=== PATIENT | male | born 1935 | race Caucasian/White ===

== ENCOUNTER 2018-02-10 16:31 | Emergency (ER) | payer MEDICARE, OTHER ==
[~2018-02-10] VITALS: Ht 182.9 cm; Wt 97.0 kg
[~2018-02-10 16:31] MED LIST: AVODART0.5 MG OR; CRESTOR10 MG OR; ECOTRIN325 MG OR; FELODIPINE5 MG OR; FISH-EPA1000 MG OR; FLUOXETINE20 M2 OR; FOLBIC OR; HYTRIN1 MG OR; ISOSORB DIN30 MG OR; JANUVIA100 MG OR; KEFLEX500 MG OR; LANTUS100 UNIT/M SC; LISINOPRIL20 MG OR; METO50TA52 OR; METOPROLOL100 MG OR; NIACIN TR1000 MG OR; NITROGLYCER0.4 MG SL; NITROSTAT0.4 MG SL; NORTRIPTYLIN25 MG OR; NORTRIPTYLIN50 MG OR; OMEGA 31000 MG OR; OMEPRAZOLE20 MG OR; PERCOCET 10/31 COMBO PO; PERCOCET 5/325M1 TAB OR; PLAVIX75 MG OR; STOOL SOFTEN100 MG OR; TOPROL XL100 MG OR; TOPROL XL50 MG OR; VITAMIN C1000 MG OR
[2018-02-10 17:00] VITALS: BP 126/60
[2018-02-10 17:56] LABS: HEMATOCRIT 39.6 % (39.0-50.0); HEMOGLOBIN 13.7 g/dl (14.0-18.0); IMMATURE GRANULOCYTES 0.5 % (0.0-5.0); MEAN CORPUSCULAR HGB 32.9 pG CALC (26.0-32.0); MEAN CORPUSCULAR HGB CONC 34.6 g/L CALC (32.0-36.0); NEUT# 8.11 thou/uL (1.82-7.42); RED BLOOD COUNT 4.17 mill/uL (4.70-6.10); RED CELL DISTRI WIDTH 12.9 % (11.5-15.5)
[2018-02-10 18:07] LABS: URINE BILIRUBIN - DIPSTICK NEGATIVE (NEGATIVE); URINE BLOOD DIPSTICK LARGE (NEGATIVE); URINE COLOR YELLOW; URINE GLUCOSE - DIPSTICK NEGATIVE (NEGATIVE); URINE KETONE NEGATIVE (NEGATIVE); URINE NITRITE - DIPSTICK NEGATIVE (Negative); URINE PH 6.5 (4.5-8.0); URINE PROTEIN - DIPSTICK 100 mg/dL (NEG-TRACE); URINE SPECIFIC GRAVITY 1.025; URINE UROBILINOGEN - DIPSTICK 0.2 E.U./dL (0.2)
[2018-02-10 18:13] LABS: URINE CLARITY CLOUDY; URINE LEUK ESTERASE LARGE (NEGATIVE)
[2018-02-10 18:14] LABS: ALBUMIN 3.8 g/dL (3.2-5.0); ALKALINE PHOSPHATASE 42 u/l (38-126); ANION GAP 12 (6-22 (CALC)); BILIRUBIN, TOTAL 0.7 mg/dL (0.0-1.4); BUN 26 mg/dL (8-23); BUN/CREATININE RATIO 20 (12-20 (CALC)); CARBON DIOXIDE 29 mmol/l (22-30); CHLORIDE 103 mmol/l (95-108); CREATININE 1.3 mg/dL (0.7-1.3); GFR 53 ML/MIN (>=60 (CALC)); GFR FOR AFR.AMER. > 60 ML/MIN (>=60 (CALC)); POTASSIUM 4.3 mmol/l (3.5-5.1); SGOT/AST 22 u/l (19-48); SODIUM 140 mmol/l (137-146); TOTAL PROTEIN 6.4 g/dL (6.3-8.2)
[2018-02-10] MEDS ORDERED: VENLAFAXINE75 M2 PO (18:18)
[2018-02-10 18:20] LABS: URINE BACTERIA MANY hpf; URINE RBC 50-100 RBC/hpf (0-5); URINE WBC 50-100 WBC/hpf (0-5)
[2018-02-10] MEDS ORDERED: AMLODIPINE5 MG PO (18:20)
[2018-02-10] MEDS ORDERED: PRIMIDONE50 MG PO (18:20)
[2018-02-10] MEDS ORDERED: SYMBICORT1 AE1 IN (18:21)
[2018-02-10] MEDS ORDERED: LEVOTHYROXIN50 MCG PO (18:22)
[2018-02-10] MEDS ORDERED: TRAZODONE50 MG PO (18:22)
[2018-02-10] MEDS ORDERED: ROPINIROLE0.5 MG PO (18:24)
[2018-02-10] MEDS ORDERED: MULTI VIT PO (18:24)
[2018-02-10] MEDS ORDERED: VITAMIN C1000 MG PO (18:24)
[2018-02-10] MEDS ORDERED: PYRIDIUM200 MG PO (18:56)
[2018-02-10] MEDS ORDERED: CIPROFLOXACN500 MG PO (18:56)
== END 2018-02-10 19:15 | disposition home or self-care (01) ==
LOC: ED 16:31
PROVIDERS: Emergency Medicine
DX: N39.0 Urinary tract infection, site not specified (principal); K59.00 Constipation, unspecified; E11.9 Type 2 diabetes mellitus without complications; M19.90 Unspecified osteoarthritis, unspecified site; E78.00 Pure hypercholesterolemia, unspecified; B96.20 Unspecified Escherichia coli [E. coli] as the cause of diseases classified elsewhere; Z95.5 Presence of coronary angioplasty implant and graft; Z95.0 Presence of cardiac pacemaker; Z95.820 Peripheral vascular angioplasty status with implants and grafts

== ENCOUNTER → 2018-05-20 | Outpatient (REF) | payer MEDICARE, OTHER ==
[~2018-05-20] MED LIST changes: +AMLODIPINE5 MG PO; +CIPROFLOXACN500 MG PO; +LEVOTHYROXIN50 MCG PO; +MULTI VIT PO; +PRIMIDONE50 MG PO; +PYRIDIUM200 MG PO; +ROPINIROLE0.5 MG PO; +SYMBICORT1 AE1 IN; +TRAZODONE50 MG PO; +VENLAFAXINE75 M2 PO; +VITAMIN C1000 MG PO
[2018-05-20 08:48] LABS: ALBUMIN 4.2 g/dL (3.2-5.0); BILIRUBIN, TOTAL 0.5 mg/dL (0.0-1.4); CREATININE 1.4 mg/dL (0.7-1.3); POTASSIUM 4.4 mmol/l (3.5-5.1); TOTAL PROTEIN 6.4 g/dL (6.3-8.2)
== END | disposition home or self-care (01) ==
LOC: LAB 07:44
PROVIDERS: ATTEND Internal Medicine
DX: E11.42 Type 2 diabetes mellitus with diabetic polyneuropathy (principal)

== ENCOUNTER → 2018-05-26 | Outpatient (REF) | payer MEDICARE, OTHER | END | disposition home or self-care (01) | LOC: DI 15:22 | PROVIDERS: ATTEND Internal Medicine | DX: M25.561 Pain in right knee (principal); M25.562 Pain in left knee ==

== ENCOUNTER 2018-10-19 08:53 | Observation (INO) | payer MEDICARE, OTHER ==
[~2018-10-19] VITALS: Ht 182.9 cm; Wt 95.3 kg
--- NOTE | 2018-10-19 08:53 | NUR ---
PT TO ROOM VIA EMS STRETCHER.
--- NOTE | 2018-10-19 09:00 | NUR ---
PT REPORTS HE IS NOW HAVING 2/10 PRESSURE TO MIDSTERNAL AREA. MD NOTIFIED.
[2018-10-19 09:31] LABS: HEMATOCRIT 41.8 % (39.0-50.0); HEMOGLOBIN 14.3 g/dl (14.0-18.0); IMMATURE GRANULOCYTES 0.5 % (0.0-5.0); MEAN CELL VOLUME 93.5 fL CALC (80.0-100.0); MEAN CORPUSCULAR HGB CONC 34.2 g/L CALC (32.0-36.0); NEUT# 3.71 thou/uL (1.82-7.42); RED BLOOD COUNT 4.47 mill/uL (4.70-6.10); RED CELL DISTRI WIDTH 12.5 % (11.5-15.5)
[2018-10-19 09:41] LABS: PROTHROMBIN TIME 10.4 SECONDS (9.0-12.5)
[2018-10-19 09:52] LABS: ALBUMIN 4.2 g/dL (3.2-5.0); ALKALINE PHOSPHATASE 36 u/l (38-126); ANION GAP 12 (6-22 (CALC)); BILIRUBIN, TOTAL 0.6 mg/dL (0.0-1.4); BUN 25 mg/dL (8-23); BUN/CREATININE RATIO 20 (12-20 (CALC)); CARBON DIOXIDE 29 mmol/l (22-30); CHLORIDE 100 mmol/l (95-108); CREATININE 1.2 mg/dL (0.7-1.3); GFR 58 ML/MIN (>=60 (CALC)); GFR FOR AFR.AMER. > 60 ML/MIN (>=60 (CALC)); LIPASE 37 u/l (23-300); POTASSIUM 4.6 mmol/l (3.5-5.1); SGOT/AST 34 u/l (19-48); SODIUM 136 mmol/l (137-146); TOTAL PROTEIN 6.9 g/dL (6.3-8.2)
--- NOTE | 2018-10-19 09:59 | NUR ---
PT RESTING IN NO DISTRESS WITH EYES CLOSED. ROUSES EASILY, DENIES CP AT PRESENT NO SOB. PT C/O HEADACHE 05/15 DENIES MEDS FOR HEADACHE
--- NOTE | 2018-10-19 10:34 | NUR ---
DR NORIEGA AT BEDSIDE TO DISCUSS CLINICAL FINDINGS WITH PT AND SPOUSE.
--- NOTE | 2018-10-19 10:50 | NUR ---
PT DOES NOT WISH TO BE ADMITTED AT THIS TIME. DR NORIEGA DISCUSSED POC AND NITRO PASTE, MONIOTIRNG BENEFIT ETC. DISCUSSED DANGERS OF AMA INCLUDING . PT AND SPOUSE VERBALIZED UNDERSTANDING. REMOVED NITRO PASTE FROM SKIN.PT UP DRESSING INDEPENDENTLY. DENIES CP OR SOB
--- NOTE | 2018-10-19 11:00 | NUR ---
STATES IF ADMITTING DR WILL OK PTS OWN MED USE THAT PT WILL STAY FOR OBSERVATION. DISCUSSED AT LENGTH NEED FOR OBSERVATION. STATES "WE KNOW HE NEEDS TO STAY BUT WE DO NOT WANT A BIG BILL" PT REFUSES TO BE ADMITTED IF ADMITTING DR WILL NOT ALLOW OWN MEDICINE. CALL PLACED TO DR ROTH. PT RETURNED TO BED AND MONITORS. PT GAIT APPEARS SLIGHTLY UNSTEADY, PT APPEARS WEAK. DISCUSSED CONDITION AT LENGTH WITH BOTH PT AND .
--- NOTE | 2018-10-19 11:14 | NUR ---
MICA PLATE LAYER MELISSA KAMARA AT BEDSIDE TO DISCUSS OPTIONS WITH PT AND SPOUSE
--- NOTE | 2018-10-19 11:15 | NUR ---
PT AND SPOUSE AGREEABLE TO ADMIT AFTER SPEAKING WITH CASE MANAGEMENT. PT IN NO ACUTE DISTRESS. VSS. SKIN PWD. DENIES CP OR SOB.
--- NOTE | 2018-10-19 11:16 | NUR ---
DR ROTH RETURNED CALL AND SITUATION EXPALINED. DR ROTH STATES HE WILL OK PT TO TAKE OWN MEDS IF OK WITH PHARMACY.RELAYED TO ANKITA FROM PHARMACY, STATES PT IS ON TOO MANY MEDICATIONS AND UNABLE TO CHECK INTERACTIONS IF PT TAKES HOME MEDS.
[2018-10-19] MEDS ORDERED: SYMBICORT 80-4.5MCG IN (11:49)
[2018-10-19] MEDS ORDERED: TRAZODONE50 MG PO (11:51)
[2018-10-19] MEDS ORDERED: ECOTRIN LOW STR81 MG PO (11:52)
[2018-10-19] MEDS ORDERED: CLARITIN10 M1 PO (11:55)
--- NOTE | 2018-10-19 11:55 | NUR ---
PT AND SPOUSE AGREEABLE TO ADMIT AFTER SPEAKING WITH BANDAGE WRAPPING MACHINE OPERATOR. VSS. SKIN PWD. NO C/O CP OR SOB
[2018-10-19] MEDS ORDERED: SINGULAIR10 MG PO (11:56)
[2018-10-19] MEDS ORDERED: TAMSULOSIN HCL0.4 MG PO (11:57)
--- NOTE | 2018-10-19 12:15 | NUR ---
PT IN NO DISTRESS. VSS. SKIN PWD. NO CP OR SOB.
--- NOTE | 2018-10-19 12:35 | NUR ---
Admission Note Report Given to: SBAR PRINTED Transported by: Wheelchair X Stretcher Transported with: X Nurse Transporter X Patent IV O2 X Toll Line Mechanic
--- NOTE | 2018-10-19 12:38 | NUR ---
PT ARRIVED TO ICU BED 2 IN STABLE CONDITION VIA STRETCHER ACCOMPANIED BY GEREMIAS NICOLE;PT AMBULATED WITH A STEADY GAIT TO STANDING SCALE, RESTROOM AND BEDSIDE;PT A&O X4, ORIENTED TO ROOM AND CALL LIGHT SYSTEM;PT REPORTS MIDSTERNAL PRESSURE THAT STARTED THIS MORNING AND WAS UNRELIVED BY SL NITRO;PT DENIES ANY CURRENT PAIN OR DISCOMFORTS,PAIN SCALE AND REPORTING EDUCATED;RESPIRATIONS EVEN AND UNLABORED ON RA,CLEAR LUNG SOUNDS;ABDOMEN DISTENDED/SOFT ON PALPATION AND ACTIVE IN ALL 4 QUADANTS, LAST BM 10/19/18;WEAK PEDAL PULSES;SKIN INTACT;#22G TO RAC FLUSHED AND PATENT, NS TO BE STARTED @ 100ML/HR,SITE APPEARS HEALTHY;TELE MONITORING PLACED ON PT READING PACED IN THE 60'S;ACCUCHECK OBTAINED RESULTING IN 87;PT DENIES ANY ADDITIONAL NEEDS AT THIS TIME;FRESH WATER PROVIDED;PT ENCOURAGED TO CALL FOR ASSISTANCE IF NEEDED;FALL PRECAUTIONS IN PLACE WITH BED IN THE LOWEST POSITION AND CALL LIGHT IN REACH;WILL CONTINUE TO MONITOR
--- NOTE | 2018-10-19 12:47 | NUR ---
LAB AT BEDSIDE
[2018-10-19 12:59] VITALS: BP 154/74
--- NOTE | 2018-10-19 14:05 | NUR ---
CALLED TO ROOM TO DISCUSS PTS MISSED MEDS THUS FAR TODAY. PT ADVISED THAT PHARMACY IS WORKING ON LABELING & SCHEDULING HIS HOME MEDS.
--- NOTE | 2018-10-19 14:16 | NUR ---
PT ASSISTED UP TO BSC FOR BM. COURT W/IN REACH.
--- NOTE | 2018-10-19 14:32 | NUR ---
[facility], PHARMACY, CALLED TO ASSURE PT THEY ARE WORKING ON MEDS & WILL BE UP HERE TO SPEAK WITH HIM BJORN.
--- NOTE | 2018-10-19 14:50 | NUR ---
PT RESTING IN SEMI FOWLERS POSITION;RESPIRATIONS EVEN AND UNLABORED ON RA;PT DENIES ANY CURRENT CHEST PAIN OR DISCOMFORTS;PT EXPRESSES FEELINGS OF CONCERN REGARDING HOME MEDICATIONS,PT RE-EDUCATED THAT PHARMACY WILL BE UP SHORTLY TO DISCUSS ALL MEDICATION QUESTIONS WITH HIM, INCLUDING PROFILING HIS HOME MEDICATION;PT VERBALIZES UNDERSTANDING;VS REMAIN STABLE;IV FLUIDS INFUSING WITH EASE TO RAC;CARDIAC MONITORING IN PLACE;ENCOURAGED PT TO CALL FOR ANY ADDITIONAL NEEDS OR CONCERNS;CALL LIGHT IN REACH;WILL CONTINUE TO MONITOR
--- NOTE | 2018-10-19 15:16 | NUR ---
SHARON, PHARMACIST AT BEDSIDE DISCUSSING HOME MEDICATIONS AND USAGE DURING HOSPITAL STAY INCLUDING MEDICATION INTERACTIONS THAT CAN OCCUR IF SELF ADMINISTERING MEDICATIONS FROM HOME,PT VERBALIZES UNDERSTANDING OF USING HOSPITAL ADMINISTERED MEDICATION WHILE IN HOUSE. PHARMACIST TO REVIEW ALL HOME MEDICATIONS. AFTER REVIEW MEDICATIONS TO BE SEND HOME WITH PT SPOUSE.
--- NOTE | 2018-10-19 16:35 | NUR ---
PT RESTING IN BED WATCHING TV;RESPIRATIONS EVEN AND UNLABORED ON RA;PT DENIES ANY CURRENT CHEST PAIN OR PRESSURE;IV FLUIDS INFUSING TO RAC @ 100ML/HR PER ORDER;CARDIAC MONITORING IN PLACE READING PACED 62;PT INSTRUCTED TO CALL FOR ASSISTANCE IF NEEDED;ASSESSMENT UNCHANGED;CALL LIGHT IN REACH;WILL CONTINUE TO MONITOR
[2018-10-19 16:41] VITALS: BP 156/72
[2018-10-19] MEDS ORDERED: ISOSORBIDE MON120 MG PO (17:15)
--- NOTE | 2018-10-19 18:50 | NUR ---
REPORT FROM ZURDO MAX. PT SITTING UP IN BED WITH AT BEDSIDE. PT ALERT AND ORIENTED. NO DISTRESS NOTED. PT DENIES ANY PAIN OR DISCOMFORT. IV SITE APPEARS HEALTHY. DISCUSSED POC. PT VERBALIZED UNDERSTANDING. CALL LIGHT WITHIN REACH. WILL CONTINUE TO MONITOR.
--- NOTE | 2018-10-19 19:20 | NUR ---
RT IN ROOM ASSISTING PT WITH HOME CPAP SETUP.
[2018-10-19 20:20] VITALS: BP 177/80
--- NOTE | 2018-10-19 23:12 | NUR ---
PT RESTING IN BED WITH HOME CPAP ON. NO DISTRESS NOTED. URINAL EMPTIED MULTIPLE TIMES. IV FLUIDS INFUSING WITHOUT DIFFICULTY. CALL LIGHT WITHIN REACH. WILL CONTINUE TO MONITOR.
[2018-10-20 00:23] VITALS: BP 153/68
--- NOTE | 2018-10-20 03:56 | NUR ---
PT AMBULATED TO BATHROOM. REPORTED SMALL BM. PT ASSISTED BACK TO BED. IV FLUSHED WITH BRISK BLOOD RETURN AND IV FLUIDS RESTARTED. PT DENIES ANY PAIN OR DISCOMFORT. PT PUT CPAP BACK ON. CALL LIGHT WITHIN REACH.
[2018-10-20 04:45] VITALS: BP 144/72
[2018-10-20 05:55] LABS: CHOLESTEROL HDL RATIO 4.5 (<4.4 (CALC))
--- NOTE | 2018-10-20 06:23 | NUR ---
PT REPORTED FEELING LIKE BS LOW. ACCUCHECK AT THIS TIME 63. ORANGE JUICE AND CRACKERS PROVIDED. WILL CONTINUE TO MONITOR.
[2018-10-20 07:40] VITALS: BP 182/61
--- NOTE | 2018-10-20 07:40 | NUR ---
ASSESSNEBT IS COMPLETED: IV SITE IS FREE FROM REDNESS OR EDEMA. HR IS IRREGULAR, PULSES ARE STRONG X4, ABD IS SOFT WITH ACTIVE BS. HRT MONITOR IN PLACE. BREATH SOUNDS ARE CLEAR, BILATERALLY. CONTINUE TO OBSERVE AND MONITOR.
--- NOTE | 2018-10-20 08:00 | NUR ---
IN TO VISIT WITH PT. NO DISTRESS NOTED. IV SITE WAS STOPPED BY DR. ROTH. DISCHARGE ORDERS WILL BE PLACED.
--- NOTE | 2018-10-20 08:14 | NUR ---
INFORMED OF DISCHARGE PLANS WILL BE READY IN AN HOUR
[2018-10-20 09:24] VITALS: BP 144/72
--- NOTE | 2018-10-20 09:35 | NUR ---
IV SITE DISCONTINUED CATHETER INTACT. NO REDNESS OR EDEMA. TOOK ALL AM MEDICATIONS
--- NOTE | 2018-10-20 09:40 | NUR ---
DISCHARGE INSTRUCTIONS GIVEN TO PT AND FAMILY. NO DISTRESS NOTED. PT TOOK ALL BELONGINGS WITH HIM. INCLUDING C PAP MACHINE. CONTINUE TO OBSERVE AND MONITOR. Discharge instructions given. Patient verbalizes understanding of same. Discharged in stable condition via Wheelchair to Home with family. All belongings sent with pt.
== END 2018-10-20 10:00 | disposition home or self-care (01) ==
LOC: ED 08:53 → ED-I 10:12 → ED 11:44 → ICU 11:45
PROVIDERS: Emergency Medicine; ADMIT Internal Medicine; ATTEND Internal Medicine
DX: R07.9 Chest pain, unspecified (principal); I25.10 Atherosclerotic heart disease of native coronary artery without angina pectoris; I10 Essential (primary) hypertension; E11.51 Type 2 diabetes mellitus with diabetic peripheral angiopathy without gangrene; M19.90 Unspecified osteoarthritis, unspecified site; E78.5 Hyperlipidemia, unspecified; K21.9 Gastro-esophageal reflux disease without esophagitis; G25.81 Restless legs syndrome; F32.9 Major depressive disorder, single episode, unspecified; Z87.891 Personal history of nicotine dependence; Z95.5 Presence of coronary angioplasty implant and graft; Z95.0 Presence of cardiac pacemaker; Z95.820 Peripheral vascular angioplasty status with implants and grafts; Z79.4 Long term (current) use of insulin; Z79.02 Long term (current) use of antithrombotics/antiplatelets; Z79.82 Long term (current) use of aspirin

== ENCOUNTER 2018-11-18 06:23 | Day surgery (SDC) | payer MEDICARE, OTHER ==
[2018-11-18] VITALS (9 sets, daily range): BP systolic 107–143; BP diastolic 50–67
[~2018-11-18] VITALS: Ht 182.9 cm; Wt 103.2 kg
[~2018-11-18 06:23] MED LIST changes: +CLARITIN10 M1 PO; +ECOTRIN LOW STR81 MG PO; +ISOSORBIDE MON120 MG PO; +REFRESH OPTIVE; +SINGULAIR10 MG PO; +SYMBICORT 80-4.5MCG IN; +TAMSULOSIN HCL0.4 MG PO; +TYLENOL325 M2
[2018-11-18 07:18] LABS: HEMATOCRIT 38.7 % (39.0-50.0); HEMOGLOBIN 13.3 g/dl (14.0-18.0); IMMATURE GRANULOCYTES 0.4 % (0.0-5.0); MEAN CELL VOLUME 92.6 fL CALC (80.0-100.0); MEAN CORPUSCULAR HGB 31.8 pG CALC (26.0-32.0); MEAN CORPUSCULAR HGB CONC 34.4 g/L CALC (32.0-36.0); NEUT# 3.68 thou/uL (1.82-7.42); RED BLOOD COUNT 4.18 mill/uL (4.70-6.10)
[2018-11-18] MEDS ORDERED: PERCOCET 5/325M1 TAB PO (10:15)
[2018-11-18 11:22] LABS: HEMATOCRIT 38.3 % (39.0-50.0); HEMOGLOBIN 13.1 g/dl (14.0-18.0); IMMATURE GRANULOCYTES 0.5 % (0.0-5.0); MEAN CELL VOLUME 94.1 fL CALC (80.0-100.0); MEAN CORPUSCULAR HGB 32.2 pG CALC (26.0-32.0); MEAN CORPUSCULAR HGB CONC 34.2 g/L CALC (32.0-36.0); NEUT# 4.78 thou/uL (1.82-7.42); RED BLOOD COUNT 4.07 mill/uL (4.70-6.10)
[2018-11-18 12:29] LABS: ANION GAP 11 (6-22 (CALC)); BUN 24 mg/dL (8-23); BUN/CREATININE RATIO 18 (12-20 (CALC)); CARBON DIOXIDE 27 mmol/l (22-30); CHLORIDE 106 mmol/l (95-108); CREATININE 1.3 mg/dL (0.7-1.3); GFR 52 ML/MIN (>=60 (CALC)); GFR FOR AFR.AMER. > 60 ML/MIN (>=60 (CALC)); POTASSIUM 4.4 mmol/l (3.5-5.1); SODIUM 139 mmol/l (137-146)
[2018-11-19 04:59] LABS: HEMATOCRIT 40.5 % (39.0-50.0); HEMOGLOBIN 13.8 g/dl (14.0-18.0); IMMATURE GRANULOCYTES 0.5 % (0.0-5.0); MEAN CELL VOLUME 93.3 fL CALC (80.0-100.0); MEAN CORPUSCULAR HGB 31.8 pG CALC (26.0-32.0); MEAN CORPUSCULAR HGB CONC 34.1 g/L CALC (32.0-36.0); NEUT# 11.1 thou/uL (1.82-7.42); RED BLOOD COUNT 4.34 mill/uL (4.70-6.10); RED CELL DISTRI WIDTH 12.7 % (11.5-15.5)
[2018-11-19 05:22] LABS: ANION GAP 14 (6-22 (CALC)); BUN 22 mg/dL (8-23); BUN/CREATININE RATIO 19 (12-20 (CALC)); CARBON DIOXIDE 24 mmol/l (22-30); CHLORIDE 104 mmol/l (95-108); CREATININE 1.1 mg/dL (0.7-1.3); GFR > 60 ML/MIN (>=60 (CALC)); GFR FOR AFR.AMER. > 60 ML/MIN (>=60 (CALC)); POTASSIUM 4.3 mmol/l (3.5-5.1); SODIUM 138 mmol/l (137-146)
[2018-11-19 05:29] VITALS: BP 153/63
[2018-11-19 07:16] VITALS: BP 155/74
[2018-11-19 11:00] VITALS: BP 144/68; BP 172/92
== END 2018-11-19 13:10 | disposition home health service (06) ==
LOC: MS2 06:23 → ORM 06:23 → MS2 10:44 → ORM 11-19 13:10
PROVIDERS: Urology; ATTEND Internal Medicine
PROC: 0TBB8ZX Excision of Bladder, Via Natural or Artificial Opening Endoscopic, Diagnostic (ICD-10-PCS; principal; 2018-11-18)
PROC: 0T768DZ Dilation of Right Ureter with Intraluminal Device, Via Natural or Artificial Opening Endoscopic (ICD-10-PCS; 2018-11-18)
PROC: 0VB08ZZ Excision of Prostate, Via Natural or Artificial Opening Endoscopic (ICD-10-PCS; 2018-11-18)
DX: N40.1 Benign prostatic hyperplasia with lower urinary tract symptoms (principal); N13.8 Other obstructive and reflux uropathy; C67.8 Malignant neoplasm of overlapping sites of bladder; I10 Essential (primary) hypertension; I25.10 Atherosclerotic heart disease of native coronary artery without angina pectoris; E11.51 Type 2 diabetes mellitus with diabetic peripheral angiopathy without gangrene; K21.9 Gastro-esophageal reflux disease without esophagitis; E78.5 Hyperlipidemia, unspecified; Z79.4 Long term (current) use of insulin; Z87.891 Personal history of nicotine dependence; Z95.0 Presence of cardiac pacemaker; Z95.5 Presence of coronary angioplasty implant and graft; Z79.02 Long term (current) use of antithrombotics/antiplatelets; Z79.82 Long term (current) use of aspirin
CPT/HCPCS: C1769; J1100; S0164

== ENCOUNTER 2020-03-20 11:58 | Observation (INO) | payer MEDICARE, OTHER ==
[~2020-03-20] VITALS: Ht 182.9 cm; Wt 89.9 kg
[~2020-03-20 11:58] MED LIST changes: +PERCOCET 5/325M1 TAB PO
--- NOTE | 2020-03-20 12:00 | NUR ---
PT TO ROOM 6 VIA WC ABLE TO STAND AND TRANSFER SELF.
[2020-03-20 12:09] VITALS: BP 157/72
[2020-03-20 12:26] LABS: HEMATOCRIT 39.3 % (39.0-50.0); HEMOGLOBIN 13.3 g/dl (14.0-18.0); IMMATURE GRANULOCYTES 0.4 % (0.0-5.0); MEAN CELL VOLUME 93.6 fL CALC (80.0-100.0); MEAN CORPUSCULAR HGB 31.7 pG CALC (26.0-32.0); MEAN CORPUSCULAR HGB CONC 33.8 g/dL CAL (32.0-36.0); NEUT# 3.94 thou/uL (1.82-7.42); RED BLOOD COUNT 4.2 mill/uL (4.70-6.10); RED CELL DISTRI WIDTH 12.8 % (11.5-15.5)
[2020-03-20 12:44] LABS: ALBUMIN 4.1 g/dL (3.2-5.0); ALKALINE PHOSPHATASE 46 u/l (38-126); ANION GAP 10 (6-22 (CALC)); BUN 25 mg/dL (8-23); BUN/CREATININE RATIO 21 (12-20 (CALC)); CARBON DIOXIDE 30 mmol/l (22-30); CHLORIDE 98 mmol/l (95-108); CREATININE 1.2 mg/dL (0.7-1.3); GFR 57 ML/MIN (>=60 (CALC)); GFR FOR AFR.AMER. > 60 ML/MIN (>=60 (CALC)); LIPASE 41 u/l (23-300); POTASSIUM 4.9 mmol/l (3.5-5.1); SGOT/AST 28 u/l (19-48); SODIUM 134 mmol/l (137-146); TOTAL PROTEIN 6.4 g/dL (6.3-8.2)
[2020-03-20 12:45] LABS: BILIRUBIN, TOTAL 0.7 mg/dL (0.0-1.4)
[2020-03-20 13:00] LABS: ACT PARTIAL THROMBO TIME 25.6 SECONDS (20.0-32.5); PROTHROMBIN TIME 9.9 SECONDS (9.0-12.5)
--- NOTE | 2020-03-20 13:05 | NUR ---
PT RESTING, REPORTS PAIN IMPROVED WITH MEDS. NO DISTRESS NOTED. VITALS STABLE ON MONITOR. AT BEDSIDE. CALL LIGHT WITHIN REACH.
--- NOTE | 2020-03-20 14:07 | NUR ---
SWABBED FOR COVID, PENDING ADMISSION. NO COMPLAINTS AT THIS TIME. CONTINUING TO MONITOR.
[2020-03-20 14:09] VITALS: BP 128/60
--- NOTE | 2020-03-20 15:15 | NUR ---
PT SLEEPING, NO DISTRESS NOTED. STABLE ON MONITOR. WENT HOME.
[2020-03-20 16:09] VITALS: BP 155/85
--- NOTE | 2020-03-20 16:20 | NUR ---
PT AMBULATED TO THE BATHROOM WITHOUT DIFFICULTY.
--- NOTE | 2020-03-20 17:30 | NUR ---
MEAL TRAY PROVIDED. STABLE ON MONITOR. PERSONAL ITEMS WITHIN REACH.
[2020-03-20 18:09] VITALS: BP 155/70
--- NOTE | 2020-03-20 18:16 | NUR ---
PT GIVEN PORTABLE PHONE TO CALL FAMILY. NO OTHER NEEDS OR COMPLAINTS AT THIS TIME.
[2020-03-20 18:46] VITALS: BP 183/83
--- NOTE | 2020-03-20 19:00 | NUR ---
IN ROOM INTRODUCED SELF TO PT. NO C/O CP OR SOB OFFERED AT THIS TIME.
--- NOTE | 2020-03-20 20:30 | NUR ---
PT. AMBULATED TO BR GAIT SLOW AND STEADY.NO C/O CP OR SOB OFFERED.
--- NOTE | 2020-03-20 22:33 | NUR ---
PT. GIVEN PO MEDS, RESTING QUIETLY ON STRETCHER.
--- NOTE | 2020-03-20 23:55 | NUR ---
AMBULATING TO BR GAIT SLOW AND STEADY, NO C/O CP OR SOB OFFERED.
--- NOTE | 2020-03-21 01:42 | NUR ---
Admission Note Report Given to: JACK ARCHULETA Transported by: Wheelchair X Stretcher Transported with: X Nurse Transporter X Patent IV O2 X Theoretical Physics Teacher Location: ICU X MS2
--- NOTE | 2020-03-21 01:44 | NUR ---
PT. TAKEN TO MT FLOOR VIA STRETCHER.
--- NOTE | 2020-03-21 01:52 | NUR ---
PT RECEIVED FROM ED TO ROOM 260. ARRIVES VIA STRETCHER ACCOMPANIED BY RAMIRO ARCHULETA. PT AMBULATORY TO BED. GAIT STEADY AND BALANCED. PT DENIES PAIN AT THIS TIME. ORIENTED TO UNIT, ROOM, CALL STEWART, LIGHTS, TV, ICE WATER PROVIDED. CALL STEWART WITHIN REACH. AGREES TO CALL PRN.
[2020-03-21 01:55] VITALS: BP 149/67
[2020-03-21 03:40] VITALS: BP 144/81
--- NOTE | 2020-03-21 03:50 | NUR ---
PT RESTING IN BED, NO SIGNS OF DISTRESS NOTED, RESP EVEN AND UNLABORED. PT VOICES NO NEEDS OR COMPLAINTS AT THIS TIME. CALL LIGHT IN REACH, CONTINUE TO MONITOR.
[2020-03-21 06:28] LABS: HEMATOCRIT 42.7 % (39.0-50.0); HEMOGLOBIN 14.3 g/dl (14.0-18.0); IMMATURE GRANULOCYTES 0.2 % (0.0-5.0); MEAN CELL VOLUME 93.8 fL CALC (80.0-100.0); MEAN CORPUSCULAR HGB 31.4 pG CALC (26.0-32.0); MEAN CORPUSCULAR HGB CONC 33.5 g/dL CAL (32.0-36.0); NEUT# 3.39 thou/uL (1.82-7.42); RED BLOOD COUNT 4.55 mill/uL (4.70-6.10); RED CELL DISTRI WIDTH 12.8 % (11.5-15.5)
[2020-03-21 06:48] LABS: ALBUMIN 4.1 g/dL (3.2-5.0); ALKALINE PHOSPHATASE 44 u/l (38-126); ANION GAP 9 (6-22 (CALC)); BILIRUBIN, TOTAL 0.6 mg/dL (0.0-1.4); BUN 23 mg/dL (8-23); BUN/CREATININE RATIO 19 (12-20 (CALC)); CALCULATED LDLCHOLESTEROL 71 mg/dL (62-129 (CALC)); CARBON DIOXIDE 34 mmol/l (22-30); CHLORIDE 101 mmol/l (95-108); CHOLESTEROL HDL RATIO 3.8 (<4.4 (CALC)); CREATININE 1.2 mg/dL (0.7-1.3); GFR 57 ML/MIN (>=60 (CALC)); GFR FOR AFR.AMER. > 60 ML/MIN (>=60 (CALC)); HDL CHOLESTEROL 33 mg/dL (>=40); POTASSIUM 4.3 mmol/l (3.5-5.1); SGOT/AST 31 u/l (19-48); SODIUM 139 mmol/l (137-146); TOTAL CHOLESTEROL 127 mg/dl (0-199); TOTAL PROTEIN 6.5 g/dL (6.3-8.2); TOTAL TRIGLYCERIDES 116 mg/dl (30-149); VLDL CHOLESTROL 23 mg/dl (0-38 (CALC))
--- NOTE | 2020-03-21 07:00 | NUR ---
REPORT RECEIVED FROM GEREMIAS SANTIAGO. PT RESTING IN BED. NO S/S OF DISTRESS AT THIS TIME. SAFETY PRECAUTOINS IN PLACE. WILL CONTINUE TO MONITOR.
--- NOTE | 2020-03-21 08:50 | NUR ---
PT RESTING IN BED ALERT AND ORIENTED. RESPIRATIONS ARE EVEN AND UNLABORED ON RA. LUNGS SOUND CLEAR/DIMINISHED. PEDLA PULSES ARE WEAK. PT DENIES ANY PAIN OR DISCOMFORT AT THIS TIME. SAFETY PRECAUTIONS IN PLACE. WILL CONTINUE TO MONITOR.
[2020-03-21 08:51] VITALS: BP 150/68
[2020-03-21] MEDS ORDERED: LEVOTHYROXIN50 MCG PO (09:36)
--- NOTE | 2020-03-21 09:52 | NUR ---
Patient is screened for PT interventions and no needs are identified at this time
[2020-03-21 10:41] VITALS: BP 172/76
--- NOTE | 2020-03-21 11:27 | NUR ---
Discharge instructions given. Patient verbalizes understanding of same. Discharged in stable condition via Wheelchair to Home with staff. All belongings sent with pt.
== END 2020-03-21 11:24 | disposition home or self-care (01) ==
LOC: ED 11:58 → ED-I 13:20 → ED 13:29 → ED-I 13:30 → MS2 13:30
PROVIDERS: Nurse Practitioner; Student in an Organized Health Care Education/Training Program; ADMIT Internal Medicine; ATTEND Internal Medicine
DX: R07.9 Chest pain, unspecified (principal); I25.10 Atherosclerotic heart disease of native coronary artery without angina pectoris; I10 Essential (primary) hypertension; E11.51 Type 2 diabetes mellitus with diabetic peripheral angiopathy without gangrene; E78.5 Hyperlipidemia, unspecified; F32.9 Major depressive disorder, single episode, unspecified; K21.9 Gastro-esophageal reflux disease without esophagitis; Z79.4 Long term (current) use of insulin; Z95.5 Presence of coronary angioplasty implant and graft; Z79.02 Long term (current) use of antithrombotics/antiplatelets; Z79.82 Long term (current) use of aspirin; Z95.820 Peripheral vascular angioplasty status with implants and grafts; Z87.891 Personal history of nicotine dependence; Z20.828 Contact with and (suspected) exposure to other viral communicable diseases
CPT/HCPCS: J1650

== ENCOUNTER 2020-04-05 15:24 | Emergency (ER) | payer MEDICARE, OTHER ==
[~2020-04-05] VITALS: Ht 182.9 cm; Wt 93.0 kg
[2020-04-05] MEDS ORDERED: PREDNISONE5 MG PO (16:22)
[2020-04-05 16:30] LABS: HEMATOCRIT 38.8 % (39.0-50.0); HEMOGLOBIN 13.3 g/dl (14.0-18.0); IMMATURE GRANULOCYTES 0.4 % (0.0-5.0); MEAN CELL VOLUME 92.8 fL CALC (80.0-100.0); MEAN CORPUSCULAR HGB 31.8 pG CALC (26.0-32.0); MEAN CORPUSCULAR HGB CONC 34.3 g/dL CAL (32.0-36.0); NEUT# 6.46 thou/uL (1.82-7.42); RED BLOOD COUNT 4.18 mill/uL (4.70-6.10); RED CELL DISTRI WIDTH 13.2 % (11.5-15.5)
[2020-04-05 16:40] LABS: ALBUMIN 4.3 g/dL (3.2-5.0); BILIRUBIN, TOTAL 0.7 mg/dL (0.0-1.4); CREATININE 1.5 mg/dL (0.7-1.3); POTASSIUM 4.2 mmol/l (3.5-5.1); TOTAL PROTEIN 6.9 g/dL (6.3-8.2)
[2020-04-05 18:34] LABS: URINE BILIRUBIN - DIPSTICK NEGATIVE (NEGATIVE); URINE BLOOD DIPSTICK NEGATIVE (NEGATIVE); URINE COLOR YELLOW; URINE GLUCOSE - DIPSTICK NEGATIVE (NEGATIVE); URINE KETONE NEGATIVE (NEGATIVE); URINE LEUK ESTERASE NEGATIVE (NEGATIVE); URINE NITRITE - DIPSTICK NEGATIVE (Negative); URINE PROTEIN - DIPSTICK NEGATIVE (NEG-TRACE); URINE SPECIFIC GRAVITY <=1.005; URINE UROBILINOGEN - DIPSTICK 0.2 E.U./dL (0.2)
[2020-04-05] MEDS ORDERED: COLACE100 MG PO (18:58)
[2020-04-05] MEDS ORDERED: ANUCORT-HC25 MG RE (18:58)
[2020-04-05 19:03] VITALS: BP 107/58
== END 2020-04-05 19:12 | disposition home or self-care (01) ==
LOC: ED 15:24
DX: K64.8 Other hemorrhoids (principal); I10 Essential (primary) hypertension; E11.9 Type 2 diabetes mellitus without complications; Z95.5 Presence of coronary angioplasty implant and graft; Z95.0 Presence of cardiac pacemaker; Z95.820 Peripheral vascular angioplasty status with implants and grafts; Z79.4 Long term (current) use of insulin
CPT/HCPCS: Q9967

== ENCOUNTER 2020-08-07 13:38 | Observation (INO) | payer MEDICARE, OTHER ==
[~2020-08-07] VITALS: Ht 182.9 cm; Wt 90.0 kg
[~2020-08-07 13:38] MED LIST changes: +ANUCORT-HC25 MG RE; +CBD OIL; +COLACE100 MG PO; +ECOTRIN PO; +ESOMEPRAZOLE MA40 MG PO; +EUTHYROX50 MCG PO; +LANTUS100 UNIT SC; +PREDNISONE5 MG PO; +PREVAGEN10 MG PO; +[UNRECOGNIZED DRUG - OTHER]; +[UNRECOGNIZED DRUG - OTHER]; +[UNRECOGNIZED DRUG - OTHER]
--- NOTE | 2020-08-07 13:40 | NUR ---
TO ROOM VIA WHEELCHAIR
--- NOTE | 2020-08-07 13:40 | NUR ---
TO ROOM VIA EMS
[2020-08-07 14:57] LABS: HEMATOCRIT 47.5 % (39.0-50.0); HEMOGLOBIN 16.3 g/dl (14.0-18.0); IMMATURE GRANULOCYTES 0.6 % (0.0-5.0); MEAN CELL VOLUME 91.7 fL CALC (80.0-100.0); MEAN CORPUSCULAR HGB 31.5 pG CALC (26.0-32.0); MEAN CORPUSCULAR HGB CONC 34.3 g/dL CAL (32.0-36.0); NEUT# 6.72 thou/uL (1.82-7.42); RED BLOOD COUNT 5.18 mill/uL (4.70-6.10); RED CELL DISTRI WIDTH 11.9 % (11.5-15.5)
[2020-08-07 15:09] LABS: CREATININE 2.1 mg/dL (0.7-1.3); MAGNESIUM 1.9 mg/dL (1.6-2.3); POTASSIUM 4.4 mmol/l (3.5-5.1)
[2020-08-07 15:10] LABS: ALBUMIN 4.9 g/dL (3.2-5.0); BILIRUBIN, TOTAL 1.4 mg/dL (0.0-1.4); TOTAL PROTEIN 7.6 g/dL (6.3-8.2)
[2020-08-07 15:16] LABS: PROTHROMBIN TIME 10.3 SECONDS (9.0-12.5)
--- NOTE | 2020-08-07 15:30 | NUR ---
RETURNED FROM RADIOLOGY, TECHS STATED THAT IS WAS NOT POSSIBLE TO COMPLETE SCAN BECAUSE OF PATIENT BECOMING AGITATED BECAAUSE OF MACHINE.
[2020-08-07 16:08] LABS: URINE BLOOD DIPSTICK NEGATIVE (NEGATIVE); URINE COLOR YELLOW; URINE GLUCOSE - DIPSTICK NEGATIVE (NEGATIVE); URINE KETONE 15 mg/dL (NEGATIVE); URINE LEUK ESTERASE NEGATIVE (NEGATIVE); URINE PROTEIN - DIPSTICK 30 mg/dL (NEG-TRACE); URINE SPECIFIC GRAVITY 1.015
[2020-08-07 16:12] LABS: URINE BILIRUBIN - DIPSTICK SMALL (NEGATIVE); URINE NITRITE - DIPSTICK NEGATIVE (Negative)
[2020-08-07 16:13] LABS: URINE RBC 0-2 RBC/hpf (0-5); URINE WBC 0-2 WBC/hpf (0-5)
--- NOTE | 2020-08-07 16:14 | NUR ---
ASSITED PATIENT TO BR TO STOOL
--- NOTE | 2020-08-07 17:25 | NUR ---
PATIENT TO CT FOR SCAN VIA WC.
--- NOTE | 2020-08-07 18:45 | NUR ---
patient belonging list completed. Patient awaiting admission.
[2020-08-07 19:00] VITALS: BP 168/86
--- NOTE | 2020-08-07 19:01 | NUR ---
report to Erik hooker in sbar format
--- NOTE | 2020-08-07 19:48 | NUR ---
Admission Note Report Given to: GEREMIAS ART Transported by: X Wheelchair Stretcher Transported with: X Nurse Transporter X Patent IV O2 X Extrusion Die Repairer Location: ICU X MS[facility]
--- NOTE | 2020-08-07 21:00 | NUR ---
PATIENT ADMITTED FROM ER VIA WHEELCHAIR WITH ER STAFF IN ATTENDANCE. PATIENT IS UNSTEADY ON HIS FEET AND HAS HIS CANE WITH HIM. PATIENT IS BEING ADMITTED FOR AMS-POSSIBE PLACEMENT/REHAB. PATIENT IS AWAKE ALERT AND ORIENTED TO PERSON AND PLACE. ASSIST TO HIS BED. PATIKENT WITH SALINE LOCK TO LEFT HAND IVF NS HUNG AND INFUSING AT 100CC/HR. TELE MONITOR IN PLACE. ACCU-CHECK WAS 211-MEDICATED WITH LEVEMIR 15UNITS SCHEDULED. PATIENT PROVIDED MEAL-ATE MICROWAVE MEAL AND TURKEY SANDWICH. PROVIDED WITH DIET DRINK-DRANK 240CC PO FLUIDS. SCHEDULED HS MEDS PROVIDED WITHOUT ANY DIFFICULTY. PATIENT IS VERY FORGETFUL AND HIGH SAFETY RISK FOR FALLS. INSTRUCTED PATIENT ON USE OF NURSE CALL LIGHT SYSTEM, TV REMOTE AND TELEPHONE WITH LITTLE SUCCESS. ORIENTED TO ROOM AND SURROUNDINGS. SAFETY PRECAUTIONS REINFORCED. BED ALARM IN PLACE FOR PATIENT SAFETY. WILL CONT TO MONITOR.
--- NOTE | 2020-08-07 21:05 | NUR ---
Admission Note Report Given to: GEREMIAS ART Transported by: X Wheelchair Stretcher Transported with: X Nurse Transporter X Patent IV O2 X Tannery Gummer Location: ICU X MS2
--- NOTE | 2020-08-07 23:30 | NUR ---
BED ALARM IS GOING OFF AND PATIENT FOUND GETTING OOB TO THE BSC. PATIENT IS HAVING LOOSE BROWN STOOLS. FREQUENT VOIDING. REMAINS UNSTEADY ON HIS FEET. ATTEMPT TO REINSTRUCT PATIENT REGUARDING SAFETY AND USE OF THE BED ALRM. REINFORCED PATIENT TO CALL FOR ASSIST. LACTIC ACID IS NOW BACK TO NORMAL-1.7. BED ALARM BACK IN PLACE. CALL LIGHT IN REACH. WILL CONT TO MONITOR.
[2020-08-08] VITALS (7 sets, daily range): BP systolic 134–180; BP diastolic 57–76
--- NOTE | 2020-08-08 01:53 | NUR ---
PATIENT FOUND OOB AGAIN ON BSC. PATIENT IS VERY UNSTEADY ON HIS FEET AND MAJOR FALL RISK. REINFORCED WITH PATIENT THE NEED TO CALL FOR ASSISTANCE WHEN HE NEEDS TO GET OOB FOR ANYTHING. STATES THAT HE WILL BE VERY FORGETFUL. PATIENT WITH DEMENTIA. STAFF WITH PATIENT AT THIS TIME. PATIENT HAVING LOOSE BM'S TONIGHT. TELE MONITOR IN PLACE. IVF NS PATENT AND INFUSING VIA LEFT HAND AT 100CC/HR. ASSISTED BACK TO BED AND BED ALARM IN PLACE FOR PATIENT SAFETY. CALL LIGHT IN REACH. WILL CONT TO MONITOR.
--- NOTE | 2020-08-08 03:59 | NUR ---
PATIENT RESTING IN BED-C/O GENERALIZED PAIN AND HEADACHE. MEDICATED WITH TYLENOL 650MG PO FOR PAIN. RESTLESS NIGHT WITH LITTLE SLEEP. IVF PATENT AND INFUSING VIA LEFT AC SITE AT 100CC/HR. TELE MONITOR IN PLACE. BED ALARM IN PLACE FOR PATIENT SAFETY. CALL LIGHT IN REACH. WILL CONT TO MONITOR.
[2020-08-08 06:07] LABS: IMMATURE GRANULOCYTES 0.2 % (0.0-5.0); MEAN CELL VOLUME 94.9 fL CALC (80.0-100.0); MEAN CORPUSCULAR HGB 31.4 pG CALC (26.0-32.0); MEAN CORPUSCULAR HGB CONC 33.1 g/dL CAL (32.0-36.0); NEUT# 4.14 thou/uL (1.82-7.42); RED BLOOD COUNT 4.3 mill/uL (4.70-6.10)
[2020-08-08 06:11] LABS: HEMATOCRIT 40.8 % (39.0-50.0); HEMOGLOBIN 13.5 g/dl (14.0-18.0)
[2020-08-08 06:21] LABS: CREATININE 1.5 mg/dL (0.7-1.3)
[2020-08-08 06:24] LABS: ALBUMIN 3.5 g/dL (3.2-5.0); BILIRUBIN, TOTAL 0.7 mg/dL (0.0-1.4); POTASSIUM 4.2 mmol/l (3.5-5.1); TOTAL PROTEIN 5.7 g/dL (6.3-8.2)
--- NOTE | 2020-08-08 07:59 | NUR ---
REPORT RECEIVED FROM GEREMIAS ART. BED ALARM SOUNDING AND PT FOUND SITTING UP ON EDGE OF BED ATTEMPTING TO STAND UNSTEADILY; STATES THAT HE THINKS HIS FAMILY IS HERE. PT REORIENTED AND REMINDED OF VISITING HOURS. HE THEN STATES THAT HE BELIEVES HE HEARS THE GOLFERS OUT THERE TALKING; REMINDED OF NURSING SHIFT CHANGE. EASILY REDIRECTED AND GETS BACK INTO BED. ALERT AND ORIENTED X 3, OTHERWISE PT IS CONFUSED, FORGETFUL, AND IMPULSIVE. BED ALARM IS ON FOR SAFETY. DENIES PAIN. RESPIRATIONS EVEN AND UNLABORED ON ROOM AIR. IV SITE APPEARS HEALTHY. ACCU CHECK 112. TELE ON. POC REVIEWED; PT ENCOURAGED TO VERBALIZE CONCERNS; ASKS FOR HELP MAKING A PHONE CALL; ASSISTED WITH PHONE CALL. SAFETY MEASURES IN PLACE AND PT REMINDED ON USE OF CALL LIGHT SYSTEM.
--- NOTE | 2020-08-08 08:27 | NUR ---
PT HAD LARGE EMESIS AFTER CHOKING ON BREAKFAST; WHILE CHANGING GOWN PT THEN PLACED FINGERS DOWN HIS THROAT TO PROMPT MORE EMESIS. PT INSTRUCTED NOT TO INDUCE VOMITING, BUT CONTINUES TO DO SO STATING THAT IT WILL HELP HIM CLEAR HIS THROAT. ASSISTED UP INTO CHAIR; NO RESPIRATORY DISTRESS NOTED; VISALLY NO OBJECTS IN THROAT. PT CONTINUES TO ATTEMPT TO VOMIT; GIVEN GINGERALE; PT ENCOURAGED TO RELAX AND DRINK FLUIDS. AM CARE PROVIDED. PT TALKATIVE THROUGHOUT CARE AND SAYS, "I THINK I GOT IT ALL."
--- NOTE | 2020-08-08 09:54 | NUR ---
EMS SITE DC'D; NEW SITE PLACED TO LFA; NORMAL SALINE INTIATED AT 80 ML/HR. PT REMAINS UP IN CHAIR WITH SAFETY ALARM CLIPPED TO GOWN. PHYSICAL THERAPY AT BEDSIDE.
--- NOTE | 2020-08-08 10:00 | NUR ---
AND ADEN LINARES AT BEDSIDE.
--- NOTE | 2020-08-08 11:32 | NUR ---
PT IS HAVING INCREASED ANXIETY; ASKING TO WALK DOWN HALLWAY TO WINDOW BECAUSE THERE ARE BIRDS OUTSIDE THAT HE WANTS TO SEE. GETTING OUT OF BED IN EMOTIONAL DISTRESS STATING, "I'M HAVING AN EMERGENCY, MY IS GOING TO . MY SON CALLED ME CRYING." SPOKE TO WHO IS HEALTHY; SHE WILL COME SEE PT DURING VISITING HOURS. NOTIFIED; NEW ORDERS RECEIVED.
--- NOTE | 2020-08-08 12:08 | NUR ---
RT AT BEDSIDE FOR EKG.
--- NOTE | 2020-08-08 12:21 | NUR ---
FIRST DOSE OF SEROQUEL GIVEN; PT SITTING UP EATING LUNCH. STAFF AT BEDSIDE FOR CLOSER MONITORING.
--- NOTE | 2020-08-08 13:42 | NUR ---
AT BEDSIDE. PT RESTING WITH EYES CLOSED AND LIGHTS OFF.
--- NOTE | 2020-08-08 15:36 | NUR ---
CONTINUES TO REST WITH EYES CLOSED; NOW ON LEFT SIDE HOLDING SIDE RAIL LOOSELY; CALMER AFTER SEROQUEL. REMAINS AT BEDSIDE.
--- NOTE | 2020-08-08 15:52 | NUR ---
PT SEEN AT REST IN THE BED WITH ROGER AT BEDSIDE. PT IS ABLE TO SAY HIS NAME, DATE OF , HER NAME, LOCATION. NO PAIN TO REPORT. PT ADVISED TO CALL IF HE NEEDS ANYTHING.
--- NOTE | 2020-08-08 22:08 | NUR ---
PATIENT IS ALERT AND ORIENTED WITH LOTS OF CONFUSION AND FORGETFULNESS. PATIENT HAS BEEN FOUND 3 TIMES SINCE 1844 OUT OF BED UNSTEADY ON FEET AND REDIRECTED BACK TO BED. BED ALARM ON AT THIS TIME. MEDICATIONS COMPLIANT. CURRENTLY RESTING WITH EYES CLOSED. AT 2129 PATIENT EXPRESSED WANTING TO GO HOME. PATIENT WAS REDIRECTED. BED IN LOW POSITION. VAD #20 LFA INFUSING NS @ 80 ML/HR. BED ALARM ON. CALL LIGHT WITHIN REACH.
--- NOTE | 2020-08-09 02:58 | NUR ---
PATIENT FOUND GETTING OOB AND ALARM SOUNDING. REORIENTED PATIENT TO PLACE AND SITUATION AND NURSE JACK ASSISTED PT TO BSC. FALL PRECAUTIONS MAINTAINED. BED ALARM ACTIVATED. BED IN LOW POSITION. CALL LIGHT WITHIN REACH.
[2020-08-09 04:10] VITALS: BP 169/77
[2020-08-09 05:07] LABS: HEMOGLOBIN 12.6 g/dl (14.0-18.0); MEAN CELL VOLUME 93.4 fL CALC (80.0-100.0); MEAN CORPUSCULAR HGB 31.8 pG CALC (26.0-32.0); MEAN CORPUSCULAR HGB CONC 34.1 g/dL CAL (32.0-36.0); RED BLOOD COUNT 3.96 mill/uL (4.70-6.10)
[2020-08-09 05:21] LABS: ANION GAP 7 (6-22 (CALC)); BUN 23 mg/dL (8-23); BUN/CREATININE RATIO 18 (12-20 (CALC)); CARBON DIOXIDE 30 mmol/l (22-30); CHLORIDE 104 mmol/l (95-108); CREATININE 1.3 mg/dL (0.7-1.3); GFR 52 ML/MIN (>=60 (CALC)); GFR FOR AFR.AMER. > 60 ML/MIN (>=60 (CALC)); MAGNESIUM 1.7 mg/dL (1.6-2.3); POTASSIUM 3.8 mmol/l (3.5-5.1); SODIUM 138 mmol/l (137-146)
[2020-08-09 07:17] VITALS: BP 181/82
--- NOTE | 2020-08-09 07:33 | NUR ---
SHIFT CHANGE REPORT, PT AWAKE AND ALERT, DENIES PAIN, ASSISTED TO BSC AT THIS TIME, TELE MONITOR IN PLACE, IVF INFUSING, CALL STEWART IN REACH AND BED IN LOWEST POSITION. BED ALARM ON.
[2020-08-09 09:21] VITALS: BP 181/82
[2020-08-09] MEDS ORDERED: SEROQUEL25 MG PO (10:30)
--- NOTE | 2020-08-09 12:07 | NUR ---
IN HIGH FOWLERS POSITION IN BED AT THIS TIME HAVING MEAL, ALL NEEDS MET, CALL STEWART IN REACH.
--- NOTE | 2020-08-09 14:22 | NUR ---
REPORT GIVEN TO CARLITO @ [facility], PT EXPECTED TO LEAVE AT APPROXIMATELY 1400.
--- NOTE | 2020-08-09 14:29 | NUR ---
Discharge instructions given. Patient verbalizes understanding of same. Discharged in good condition via Wheelchair to ACLF with *Other. All belongings sent with pt.
--- NOTE | 2020-08-09 14:38 | NUR ---
O.T. RECEIVED ORDERS, PERFORMED CHART REVIEW AND ATTEMPTED TO EVAL PT. AT 2:15, HOWEVER, PT. D/C'D 15 MIN PRIOR PER R.N.
== END 2020-08-09 14:15 ==
LOC: ED 13:38 → ED-I 18:10 → ED 18:22 → MS2 18:23
PROVIDERS: Nurse Practitioner; ADMIT Internal Medicine; ATTEND Internal Medicine
DX: F03.90 Unspecified dementia, unspecified severity, without behavioral disturbance, psychotic disturbance, mood disturbance, and anxiety (principal); E87.2 Acidosis; N17.9 Acute kidney failure, unspecified; E86.0 Dehydration; I12.9 Hypertensive chronic kidney disease with stage 1 through stage 4 chronic kidney disease, or unspecified chronic kidney disease; E11.22 Type 2 diabetes mellitus with diabetic chronic kidney disease; N18.9 Chronic kidney disease, unspecified; E11.51 Type 2 diabetes mellitus with diabetic peripheral angiopathy without gangrene; K21.9 Gastro-esophageal reflux disease without esophagitis; F32.9 Major depressive disorder, single episode, unspecified; R44.0 Auditory hallucinations; R44.1 Visual hallucinations; I25.10 Atherosclerotic heart disease of native coronary artery without angina pectoris; Z79.4 Long term (current) use of insulin; Z95.820 Peripheral vascular angioplasty status with implants and grafts; Z95.5 Presence of coronary angioplasty implant and graft; Z95.0 Presence of cardiac pacemaker; Z20.822 Contact with and (suspected) exposure to COVID-19
CPT/HCPCS: G0378; J1650; J2060; J7626

== ENCOUNTER 2020-10-29 16:14 | Observation (INO) | payer MEDICARE, OTHER ==
[~2020-10-29] VITALS: Ht 182.9 cm; Wt 89.9 kg
[~2020-10-29 16:14] MED LIST changes: +SEROQUEL25 MG PO
--- NOTE | 2020-10-29 16:14 | NUR ---
PT ARRIVES VIA EMS STRETCHER TO ROOM # 14
[2020-10-29 17:32] LABS: HEMOGLOBIN 14.4 g/dl (14.0-18.0); IMMATURE GRANULOCYTES 0.2 % (0.0-5.0); MEAN CELL VOLUME 94.3 fL CALC (80.0-100.0); MEAN CORPUSCULAR HGB 31.3 pG CALC (26.0-32.0); MEAN CORPUSCULAR HGB CONC 33.2 g/dL CAL (32.0-36.0); NEUT# 3.64 thou/uL (1.82-7.42); RED BLOOD COUNT 4.6 mill/uL (4.70-6.10); RED CELL DISTRI WIDTH 12.4 % (11.5-15.5)
[2020-10-29 17:33] LABS: HEMATOCRIT 43.4 % (39.0-50.0)
[2020-10-29 17:44] LABS: ALBUMIN 3.7 g/dL (3.2-5.0); ALKALINE PHOSPHATASE 59 u/l (38-126); ANION GAP 10 (6-22 (CALC)); BUN 27 mg/dL (8-23); BUN/CREATININE RATIO 21 (12-20 (CALC)); CARBON DIOXIDE 32 mmol/l (22-30); CHLORIDE 102 mmol/l (95-108); CPK 85 u/l (52-200); CREATININE 1.3 mg/dL (0.7-1.3); ETHYL ALCOHOL 0 mg/dl (0-30); GFR 52 ML/MIN (>=60 (CALC)); GFR FOR AFR.AMER. > 60 ML/MIN (>=60 (CALC)); LIPASE 45 u/l (23-300); POTASSIUM 4.5 mmol/l (3.5-5.1); SGOT/AST 30 u/l (19-48); SODIUM 139 mmol/l (137-146); TOTAL PROTEIN 6.6 g/dL (6.3-8.2)
[2020-10-29 17:45] LABS: ACT PARTIAL THROMBO TIME 25.6 SECONDS (20.0-32.5); PROTHROMBIN TIME 10.5 SECONDS (9.0-12.5)
[2020-10-29 18:02] LABS: BILIRUBIN, TOTAL 0.3 mg/dL (0.0-1.4)
--- NOTE | 2020-10-29 19:15 | NUR ---
PT ALERT BUT CONFUSED, HISTORY OF DEMENTIA WITH TROUBLE FINDING WORDS, AWARE OF NEED FOR URINE SPECIMEN, ASSISTED WITH URINAL USAGE SPECIMEN OBTAINED, AND SENT ORDERED [facility] REMIANS OUTSIDE ROOM FOR PT COMFORT.
[2020-10-29 19:34] LABS: URINE BILIRUBIN - DIPSTICK NEGATIVE (NEGATIVE); URINE BLOOD DIPSTICK NEGATIVE (NEGATIVE); URINE COLOR YELLOW; URINE GLUCOSE - DIPSTICK NEGATIVE (NEGATIVE); URINE KETONE NEGATIVE (NEGATIVE); URINE LEUK ESTERASE NEGATIVE (NEGATIVE); URINE PROTEIN - DIPSTICK NEGATIVE (NEG-TRACE); URINE UROBILINOGEN - DIPSTICK 0.2 E.U./dL (0.2)
[2020-10-29 19:36] LABS: URINE NITRITE - DIPSTICK NEGATIVE (Negative)
--- NOTE | 2020-10-29 20:20 | NUR ---
MD IN TO DISCUSS PLAN OF CARE WITH PT INCLUDING ADMISSION.
--- NOTE | 2020-10-29 20:34 | NUR ---
PT SPOUSE CALLS CONCERNED PT IS SHAKING, ACCU CHECK 66 SNACK PROVIDED, SPOUSE AWARE OF PLANNED ADMISSION.
--- NOTE | 2020-10-29 21:20 | NUR ---
PT ATE EQUIVALENT OF A WHOLE TURKEY AND MILK
--- NOTE | 2020-10-29 21:40 | NUR ---
PROVIDED WITH ADMISSION INFO AND IS LEAVING AT THIS ITME, REMINDED OF VISITING HOURS TOMORROW AND PROVIDED WITH INFO TO CONTACT CASE MGMT IN AM.
--- NOTE | 2020-10-29 21:53 | NUR ---
REPORT CALLED TO RUBENS IN MED SURG,
--- NOTE | 2020-10-29 23:00 | NUR ---
ACCU CHECK COMPLETED NO COVERAGE GIVEN, IV ACCESS STARTED IN RFA WITH HYDRALAZINE GIVEN IV ORDERED FOR HYPERTENSION B/P 207/99
--- NOTE | 2020-10-29 23:15 | NUR ---
REPEAT B/P 151/101 PLANNED TRASNFER UPSTAIRS
[2020-10-29 23:19] VITALS: BP 176/79
--- NOTE | 2020-10-29 23:30 | NUR ---
PT TRASNPORTED TO MED SURG ROOM 280 VIA STRETCHER, ALL BELONGINGS SENT WITH PT. ACCEPTING NURSE AT BEDSIDE ON ARRIVAL TO UNIT.
--- NOTE | 2020-10-30 00:15 | NUR ---
PATIENT ADMITTED FROM ER VIA STRETCHER WITH ER STAFF IN ATTENDANCE. PATIENT TOTAL TRANSFER FROM STRETCHER TO BED. PATIENT IS AWAKE BUT NON-VERBAL ONLY MAKING MOANING SOUNDS. DOES NOT ANSWER ANY QUESTIONS. PATIENT IS INCONT OF LARGE AMT OF URINE AT THIS TIME. CLOTHES AND BREIF REMOVED AND PERICARE PROVIDED. PATIENT IS ABLE TO TURN TO ASSIST WITH CARE. PATIENT WITH IV SITE TO RIGHT FOREARM INTACT AND HEALTHY AT THIS TIME-GOOD BLOOD RETURN. IVF NS HUNG AND INFUSING AT 100CC/HR. PATIENT REFUSING PO FLUIDS WHEN OFFERED. TELE MONITOR IN PLACE-LAST READING WAS SR-85. LUNGS ARE CLEAR. ABD IS SOFT WITH BS+. FEET ARE COLD WITH FAINT PEDAL PULSES. FEET ELEVATED ON PILLOWS. PATIENT WITH EPISODE OF SHAKING AND MOANING. ATTEMPT MADE TO ORIENT PATIENT WITH SURROUDINGS, NURSE CALL LIGHT SYSTEM AND TV REMOTE WITH LITTLE SUCCESS 0045-PATIENT CONT TO TO HAVE EPISODES OF LOAD MOANING AND SHAKING. SKIN IS [id number] WAS DONE AND WAS 161 AT THIS TIME. O2 SATS AT 97-98%. PATIENT IS NOW TAKING SIPS OF H20. DR. COY CALL AND REQUESTING NEW VS. WILL OBTAIN VS AND CALL DR. COY BACK. WILL CONT TO MONITOR.
[2020-10-30 01:02] VITALS: BP 180/89
--- NOTE | 2020-10-30 01:31 | NUR ---
PATIENT CONT TO YELL OUT IN WHAT APPEARS TO BE PAIN. CONT TO HAVE SEVERE SHAKING. STILL COLD AND CLAMMY. BP-189/89, HR-89, O2 SAT IS 94% ON ROOM AIR. SPOKE WITH DR. GREY AGAIN AND NEW ORDERS OBTAINED. MEDICATED WITH ATIVAN 0.5MG IVP ORDERED AND CLONODINE 0.1MG PO WITH SIPS OF APPLE JUICE. ATTEMPTED TO DO RELAXATION EXERCISES WITH PATIENT WITH LITTLE SUCCESS. SITTING AT BEDSIDE WITH PATIENT AT THIS TIME. WILL CONT TO MONITOR.
--- NOTE | 2020-10-30 02:00 | NUR ---
PATIENT SOMEWHAT CALMER AT THIS TIME-CONT TO HAVE WHAT APPEARS TO BE BLE PAIN. LESS CALLING OUT AND LESS SHAKING. TAKING PO FLUIDS. CONT TO SIT AT BEDSIDE WITH PATIENT FOR PATIENT SAFETY. ANSWERS SOME QUESTIONS WITH ONE WORD ANSWERS. SKIN IS STILL COOL AND CLAMMY. GOWN CHANGED AND TELE ELECTRODES REPLACE. REMAIN AT BEDSIDE FOR PATIENT SAFETY. WILL CONT TO MONITOR.
--- NOTE | 2020-10-30 02:51 | NUR ---
PATIENT RESTING INBED AT THIS TIME CALMER- CALLING OUT AND SHAKING LESS. PATIENT IS NOW TALKING APPROPRIATELY AT TIMES. TAKING PO FLUIDS WITHOUT DIFFICULTY AND ATE TURKEY SANDWICH WITHOUT ANY DIFFICULTY.TELE MONITOR REMAINS IN PLACE. SKIN IS NOW WARM AND DRY-NO LONGER CLAMMY. IVF NS PATENT AND INFUSING AT 100CC/HR. PATIENT DID STATES THAT HE HAD TO PEE AND ASSISTED WITH URINAL. VOIDED 300CC OF CLEAR YELLOW URINE. VS RECHECKED AND BP-153/78, HR-82, O2 SAT IS 96% ON RA. BED ALARM IN PLACE FOR PATIENT SAFETY. CALL LIGHT IN REACH. WILL CONT TO MONITOR.
[2020-10-30 03:46] VITALS: BP 153/78
--- NOTE | 2020-10-30 04:32 | NUR ---
PATIENT NAPPING AT TIMES. ASKED FOR A SNACK AND PATIENT PROVIDED WITH GRANOLA BAR AND JUICE. STILL SLIGHTLY RESTLESS IN BED. BED ALARM IN PLACE FOR PATIENT SAFETY. CALL LIGHT IN REACH. WILL CONT TO MONITOR.
--- NOTE | 2020-10-30 05:00 | NUR ---
PATIENT VOIDED IN URINAL 300CC OF CLEAR YELLOW URINE. PATIENT SPEECH IS CLEARER THIS MORNING. STILL CONFUSED BUT CALMER. NO MORE SHAKING AT THIS TIME. TURNED AND REPOSITIONED. BED ALALRM IN PLACE AT THIS TIME FOR PATIENT SAFETY. CALL LIGHT IN REACH. WILL CONT TO MONITOR.
--- NOTE | 2020-10-30 06:00 | NUR ---
PATIENT IS POSITIONED ON LEFT SIDE AT THIS TIME WITH EYES CLOSED. RESPS ARE EVEN AND UNLABORED. IVF NS PATENT AND INFUSING AT 100CC/HR VIA RIGHT FOREARM SITE. BED ALARM IN PLACE FOR PATIENT SAFETY. CALL LIGHT IN REACH. WILL CONT TO MONITOR.
[2020-10-30 06:39] LABS: HEMATOCRIT 40.4 % (39.0-50.0); HEMOGLOBIN 13.8 g/dl (14.0-18.0); IMMATURE GRANULOCYTES 0.3 % (0.0-5.0); MEAN CELL VOLUME 93.3 fL CALC (80.0-100.0); MEAN CORPUSCULAR HGB 31.9 pG CALC (26.0-32.0); MEAN CORPUSCULAR HGB CONC 34.2 g/dL CAL (32.0-36.0); NEUT# 5.99 thou/uL (1.82-7.42); RED BLOOD COUNT 4.33 mill/uL (4.70-6.10); RED CELL DISTRI WIDTH 12.4 % (11.5-15.5)
[2020-10-30 07:04] LABS: ALBUMIN 3.1 g/dL (3.2-5.0); ALKALINE PHOSPHATASE 58 u/l (38-126); ANION GAP 9 (6-22 (CALC)); BILIRUBIN, TOTAL 0.4 mg/dL (0.0-1.4); BUN 26 mg/dL (8-23); BUN/CREATININE RATIO 21 (12-20 (CALC)); CARBON DIOXIDE 28 mmol/l (22-30); CHLORIDE 102 mmol/l (95-108); CREATININE 1.2 mg/dL (0.7-1.3); GFR 57 ML/MIN (>=60 (CALC)); GFR FOR AFR.AMER. > 60 ML/MIN (>=60 (CALC)); SGOT/AST 30 u/l (19-48); SODIUM 135 mmol/l (137-146); TOTAL PROTEIN 5.4 g/dL (6.3-8.2)
--- NOTE | 2020-10-30 07:27 | NUR ---
PT note Patient is screened for PT intervention and may benefit from consult with PT and ST for cognition and bedside swallow eval if medical agrees
[2020-10-30 08:13] VITALS: BP 141/84
--- NOTE | 2020-10-30 08:13 | NUR ---
BED ALARM SOUNDING, UPON ENTERING ROOM PT ATTEMPTING TO GET OUT OF BED. PT A&O TO SELF AND PLACE, REORIENTED PT TO CURRENT TIME. PT REQUESTING TO USE THE BATHROOM, URINAL PROVIDED AND NON SLID SOCKS APPLIED. USING URINAL PROPERLY WITH 400 CC OF CLEAR YELLOW URINE NOTED. PT DENIES ANY PAIN AT THIS TIME. ASSITED PT TO THE SIDE OF THE BED TO EAT BREAKFAST. CLEAR BREATH SOUNDS UPON AUSCULTATION. ACTIVE BOWEL SOUNDS X4 QUADRANTS, PT UNABLE TO RECALL LAST BM. IV HEALTHY AND PATENT, WITH IVF INFUSING PER MAR ORDER. ASSESSMENT COMPLETED. DISCUSSED POC. CALL LIGHT WITHIN REACH. BED ALARM IN PLACE FOR SAFETY.
--- NOTE | 2020-10-30 08:50 | NUR ---
physical therapy at bedside
--- NOTE | 2020-10-30 10:20 | NUR ---
DR DRUMMOND AND John MANCUSO APRN AT [facility] DISCUSSING POC
[2020-10-30 10:45] VITALS: BP 171/72
--- NOTE | 2020-10-30 10:53 | NUR ---
PT SLEEPING IN BED, NO DISTRESS NOTED. CALL LIGHT WITHIN REACH AND BED ALARM IN PLACE FOR SAFETY.
--- NOTE | 2020-10-30 11:11 | NUR ---
PT ASSITED TO THE SIDE OF THE BED, TURKEY SANDWICH GIVEN. APRESOLINE GIVEN FOR BP OF 171/72. PT EDUCATED ON ITS USE. BP TO BE REASSESSED. BED ALARM IN PLACE FOR SAFETY. CALL LIGHT WITHIN REACH.
--- NOTE | 2020-10-30 14:50 | NUR ---
pt crying, at bedside, not answering questions for this development writer . upon entering room pt agitated. Xanax po had been administered for anxiety. John Liu APRN notified, order for IV Ativan.
--- NOTE | 2020-10-30 15:54 | NUR ---
pt assited back into bed. relaxation techniques given, pt able to follow commands. pt appears to be slightly less anxious. bed alarm placed for safety. call light within reach.
[2020-10-30 16:30] VITALS: BP 146/77
--- NOTE | 2020-10-30 17:40 | NUR ---
PT SITTING ON THE SIDE OF THE BED EATING DINNER. BED ALARM IN PLACE. CALL LIGHT WITHIN REACH
[2020-10-30 18:46] VITALS: BP 165/68
--- NOTE | 2020-10-30 20:15 | NUR ---
PATIENT RESTLESS IN BED AND SETTING BED ALARM OFF-CALLING OUT AGAIN AND WANTING TO GO HOME. PATIENT CONT TO HAVE EPISODES OF SEVERE SHAKING AND TREMORS WHEN ANXIOUS. SPOKE WITH DR. DRUMMOND AND ORDERS UPDATED. MEDICATED WITH XANAX 0.25MG PO FOR ANXIETY. PATIENT IS ORINETED TO PERSON AND PLACE BUT CONT TO HAVE EPISODE OF SEVERE ANXIETY. TELE MONITOR IN PLACE-LAST READING WAS SR-[id number]. IVF NS PATENT AND INFUSING VIA RIGHT FOREARM SITE AT 100CC/HR. VOPIDING CLEAR YELLOW URINE IN URINAL. BED ALARM IN PLACE FOR PATIENT SAFETY. ATTEMPT TO REINFORCED SAFETY PRECAUTIONS. CALL LIGHT IN REACH. WILL CONT TO MONITOR.
--- NOTE | 2020-10-30 23:08 | NUR ---
PATIENT CURRENTLY RESTING QUIETLY IN BED. EYES ARE CLOSED AND RESPS ARE EVEN AND UNLABORED. IVF PATENT AND INFUSING VIA RIGHT FOREARM SITE AT 100CC.HR. TELE MONITOR REMAINS IN PLACE. CONT TO USE URINAL TO VOID CLEAR YELLOW URINE. BED ALARM IN PLACE FOR PATIENT SAFETY. CALL LIGHT IN REACH. WILL CONT TO MONITOR.
[2020-10-31] VITALS: BP 140/75
--- NOTE | 2020-10-31 02:15 | NUR ---
BED ALARM IS GOING OFF AGAIN. PATIENT FOUND OOB UNSTEADY ON HIS FEET. ASSISTED BACK TO BED. LINENS WERE WET AND LINEN WAS CHANGED. VOIDED 300+ CLEAR YELLOW U RINE IN URINAL. ASKING FOR SNACK AND PROVIDED WITH DRINK. BED ALARM IN PLACE FOR PATIENT SAFETY. CALL LIGHT IN REACH. WILL CONT TO MONITOR.
--- NOTE | 2020-10-31 03:21 | NUR ---
BED ALARM IS GOING OFF AGAIN-PATIENT FOUND SITTING UP ON THE SIDE OF THE BED. TELE MONITOR IN PLACE. IVF NS PATENT AND INFUSING VIA RIGHT WRIST SITE AT 100CC/HR. RESTLESS AGAIN. MEDICATED WITH ATIVAN 0.5MG IVP FOR ANXIETY. ASSISTED BACK INTO BED. BED ALARM IN PLACE FOR PATIENT SAFETY. REORIENTED PATIENT WITH SOME SUCCESS. CALL LIGHT IN REACH. WILL CONT TO MONITOR.
--- NOTE | 2020-10-31 03:59 | NUR ---
BED ALARM GOING OFF AGAIN-PATIENT TRYING TO GET OOB RTO VOID-ASSISTED WITH URINAL-VOIDED 350CC OF CLEAR YELLOW URINE. ASSISTED BACK INTO BED AND REPOSITIONED. IVF PATIENT AND INFUSING VIA RIGHT FOREARM SITE. TELE MONITOR IN PLACE. BED ALARM IN PLACE FOR PATIENT SAFETY. SAFETY PRECAUTIONS REINFORCED. CALL LIGHT IN REACH. WILL CONT TO MONITOR.
[2020-10-31 04:53] VITALS: BP 146/69
[2020-10-31 05:43] LABS: HEMATOCRIT 38.8 % (39.0-50.0); MEAN CELL VOLUME 94.4 fL CALC (80.0-100.0); MEAN CORPUSCULAR HGB 31.6 pG CALC (26.0-32.0); MEAN CORPUSCULAR HGB CONC 33.5 g/dL CAL (32.0-36.0); RED BLOOD COUNT 4.11 mill/uL (4.70-6.10); RED CELL DISTRI WIDTH 12.5 % (11.5-15.5)
[2020-10-31 06:11] LABS: ANION GAP 11 (6-22 (CALC)); BUN 25 mg/dL (8-23); BUN/CREATININE RATIO 22 (12-20 (CALC)); CARBON DIOXIDE 25 mmol/l (22-30); CHLORIDE 105 mmol/l (95-108); CREATININE 1.1 mg/dL (0.7-1.3); GFR > 60 ML/MIN (>=60 (CALC)); GFR FOR AFR.AMER. > 60 ML/MIN (>=60 (CALC)); MAGNESIUM 1.7 mg/dL (1.6-2.3); POTASSIUM 3.9 mmol/l (3.5-5.1); SODIUM 137 mmol/l (137-146)
[2020-10-31 08:00] VITALS: BP 138/70
--- NOTE | 2020-10-31 08:00 | NUR ---
PT RESTING IN THE BED ALERT, REORIENTED TO PLACE AND TIME. IV INFUSING. PT VOIDING CLEAR YELLOW URINE. NO DISTRESS NOTED. REPOSITIONED FOR COMOFRT, SIDE RAILS UP CALL LIGHT IN REACH BED LOCKED IN LOW POSITION, WILL CONTINUE TO MONIOTR THE PATIENT.
[2020-10-31 10:45] VITALS: BP 187/74
--- NOTE | 2020-10-31 11:10 | NUR ---
B/P 187/74 MED PER ORDER, WILL CONTINUE TO MONITOR.
--- NOTE | 2020-10-31 12:00 | NUR ---
MED FOR VOMITING, WILL CONTINUE TO MONITOR.
--- NOTE | 2020-10-31 13:50 | NUR ---
Attempted treatment this pm. Checked with nursing who reported pt BP was now 138/82 and stated he had been vomiting just prior my arrival and rec'ed meds. Pt was sitting on edge of bed with emesis bag in hand. Pt assist to bed with max assist for LE. Attempted ROM ex to LE but pt was resistant. Nurse assist in moving pt up in bed (total assist). HOB elevated. Treatment not appropriate at this time.
[2020-10-31 15:00] VITALS: BP 160/89
--- NOTE | 2020-10-31 15:16 | NUR ---
PT RESTING COMFORTABLE IN THE BED, NO DISTRESS NOTED. VISITORS AT THE BEDSIDE , NO COMPLAINTS VOICED AT THIS TIME.
--- NOTE | 2020-10-31 17:51 | NUR ---
PT RESTING IN THE BED WITH HIS EYES CLOSED , HE IS CALM AT THIS TIME.
[2020-10-31 19:00] VITALS: BP 157/60
--- NOTE | 2020-10-31 23:55 | NUR ---
PHYSICAL ASSESMENT COMPLETE. PT CURRENTLY DENIES PAIN OR DISCOMFORT. PT NON VERBAL AND CONFUSED AT THIS TIME. SCHEDULED MEDICATIONS AND PRN MEDICATION ADMINISTERED, SEE E-MAR. PT DENIES ANY NEEDS AT THIS TIME. PLAN OF CARE REVIEWED, PT DENIES QUESTIONS, VERBALIZES UNDERSTANDING. ITEMS WITHIN REACH, BED LOCKED IN LOW POSITION W/ BEDRAILS UP X2. CALL STEWART WITHIN REACH, AGREES TO CALL PRN.
[2020-11-01] VITALS: BP 161/83
--- NOTE | 2020-11-01 02:10 | NUR ---
PT LAYING IN BED WITH EYES CLOSED, APPEARS TO BE SLEEPING, APPEARS COMFORTABLE AND IN NO DISTRESS. RESPIRATIONS REGULAR AND UNLABORED. ITEMS REMAIN WITHIN REACH, CALL STEWART REMAINS WITHIN REACH. BED REMAINS LOCKED AND IN LOW POSITION WITH BEDRAILS UP X2. WILL CONTINUE TO MONITOR.
[2020-11-01 04:00] VITALS: BP 152/73
--- NOTE | 2020-11-01 04:21 | NUR ---
PT RESTING IN BED, NO SIGNS OF DISTRESS NOTED, RESP EVEN AND UNLABORED. PT VOICES NO NEEDS OR COMPLAINTS AT THIS TIME. CALL LIGHT IN REACH, CONTINUE TO MONITOR.
--- NOTE | 2020-11-01 08:00 | NUR ---
OUT OF THE BED TO THE BEDSIDE CHAIR WITH ASST OF ONE. PT VOIDING. IV LEAKING REMOVED. ALERT, REORIENTED TO PLACE ,TIME, AND EVENT. PT FOLLOWS COMMANDS. EDUCATED ON ACTIVITY. NO DISTRESS NOTED. CALL LIGHT IN REACH, WILL CONTINUE TO MONIOTR THE PATIENT.
[2020-11-01 08:11] VITALS: BP 132/82
[2020-11-01] MEDS ORDERED: BUSPAR5 M1 PO (08:38)
[2020-11-01 10:53] VITALS: BP 152/76
--- NOTE | 2020-11-01 12:56 | NUR ---
BACK INTO BED WAITING FOR TRANSPORT TO TAKE PT TO REHAB.
--- NOTE | 2020-11-01 12:58 | NUR ---
CALLED NURSING HOME TO GIVE NURSE TO NURSE REPORT, SENT TO [facility].
--- NOTE | 2020-11-01 13:30 | NUR ---
Physical Therapy Visit Patient was seen and treated today. Patient identified by full name and date . Patient appears sleepy needing vebal cues to initiate, complete and finish all exercises. 1. AROME of the head and neck, 5-10 repetitions. 2. AROME of the UE, 5-10 repetitins. 3. AROME of the LE, 5-10 repetitions 6. Quad-setting x 10 repetitions. 7. Rest periods given in between exercises. Patient was able to perform all exercises but unable to sit and stand. Patient expressed that his left thigh is tender but no pain noted when touched by the physical therapist.
--- NOTE | 2020-11-01 13:52 | NUR ---
REMOVED TELE, PT TO BE DISCHARGED TO ANOTHER FACILITY TODAY.
== END 2020-11-01 14:18 ==
LOC: ED 16:14 → ED-I 18:29 → ED 20:54 → MS2 20:55
PROVIDERS: Nurse Practitioner; ADMIT Internal Medicine; ATTEND Internal Medicine
DX: E86.0 Dehydration (principal); F03.90 Unspecified dementia, unspecified severity, without behavioral disturbance, psychotic disturbance, mood disturbance, and anxiety; I10 Essential (primary) hypertension; I25.10 Atherosclerotic heart disease of native coronary artery without angina pectoris; E11.51 Type 2 diabetes mellitus with diabetic peripheral angiopathy without gangrene; I70.209 Unspecified atherosclerosis of native arteries of extremities, unspecified extremity; E87.2 Acidosis; F41.9 Anxiety disorder, unspecified; K21.9 Gastro-esophageal reflux disease without esophagitis; F32.9 Major depressive disorder, single episode, unspecified; E78.5 Hyperlipidemia, unspecified; E03.9 Hypothyroidism, unspecified; G25.81 Restless legs syndrome; Z95.820 Peripheral vascular angioplasty status with implants and grafts; Z87.891 Personal history of nicotine dependence; Z95.5 Presence of coronary angioplasty implant and graft; Z79.4 Long term (current) use of insulin; Z95.0 Presence of cardiac pacemaker; Z20.822 Contact with and (suspected) exposure to COVID-19
CPT/HCPCS: G0378; J1650; J2060